=== PATIENT | male | born 1980 | race Hispanic/Latino ===

== ENCOUNTER 2017-04-19 16:43 | Emergency (ER) | payer SELFPAY ==
[2017-04-19] MEDS ORDERED: KETOROLAC TROMETHAMINE 60 MG/2 ML VIAL ONE (17:49)
== END 2017-04-19 18:36 | disposition home or self-care (01) ==
LOC: EDH 16:43
DX: G89.29 Other chronic pain (principal); M25.532 Pain in left wrist; I10 Essential (primary) hypertension
CPT/HCPCS: 96372; 99283; J1885

== ENCOUNTER 2017-10-05 10:36 | Emergency (ER) | payer SELFPAY ==
[2017-10-05] MEDS ORDERED: FLUORESCEIN SODIUM 0.6 MG STRIP ONE (10:46)
[2017-10-05] MEDS ORDERED: NA BORATE/BORIC AC/H2O/NACL 120 ML OPHTH IRRIG SOLN ONE (10:46)
[2017-10-05] MEDS ORDERED: TETRACAINE HCL 0.5% 4 ML OPHTH SOLN ONE (10:46)
[2017-10-05] MEDS ORDERED: DEXAMETHASONE SOD PHOSPHATE 10MG/ML 1ML VIAL ONE (11:28)
[2017-10-05] MEDS ORDERED: DiphenhydrAMINE HCL 50 MG/ML VIAL ONE (11:28)
== END 2017-10-05 12:07 | disposition home or self-care (01) ==
LOC: EDH 10:36
DX: H10.12 Acute atopic conjunctivitis, left eye (principal); I10 Essential (primary) hypertension; Z72.0 Tobacco use
CPT/HCPCS: 96372 ×2; 99284; J1100; J1200